=== PATIENT | female | born 1955 | race Caucasian/White ===

== ENCOUNTER 2017-11-04 10:15 | Outpatient (REF) | payer OTHER, SELFPAY ==
[2017-11-04 19:10] LABS: TSH 2.27 uIU/mL (0.358-3.74)
== END 2017-11-04 10:35 ==
LOC: NCHCN 10:15
PROVIDERS: PCP Physician Assistant; Visit Provider Nurse Practitioner Family
DX: E03.9 Hypothyroidism, unspecified (principal)
CPT/HCPCS: 84443

== ENCOUNTER 2018-11-14 11:02 | Outpatient (REF) | payer OTHER, SELFPAY ==
[2018-11-14 19:56] LABS: TSH (W/Ref FT4) 1.29 uIU/mL (0.36-3.74)
== END 2018-11-14 11:22 ==
LOC: NCHCN 11:02
PROVIDERS: PCP Physician Assistant; Visit Provider Nurse Practitioner Family
DX: R73.9 Hyperglycemia, unspecified (principal); E03.9 Hypothyroidism, unspecified
CPT/HCPCS: 84443

== ENCOUNTER 2019-12-11 14:54 | Outpatient (REF) | payer OTHER, SELFPAY ==
[2019-12-11 20:00] LABS: TSH (W/Ref FT4) 3.13 uIU/mL (0.36-3.74)
== END 2019-12-11 15:14 ==
LOC: NCHCN 14:54
PROVIDERS: PCP Physician Assistant; Visit Provider Nurse Practitioner Family
DX: E03.9 Hypothyroidism, unspecified (principal)
CPT/HCPCS: 84443

== ENCOUNTER 2021-01-15 09:18 | Outpatient (REF) | payer OTHER, SELFPAY ==
[2021-01-16 10:43] LABS: COVID-19 RT-PCR UVMMC Result Positive (Negative)
== END 2021-01-15 09:19 | disposition home or self-care (01) ==
LOC: NCHCN 09:18
PROVIDERS: PCP Physician Assistant; Visit Provider Physician Assistant
DX: Z20.822 Contact with and (suspected) exposure to COVID-19 (principal); R09.89 Other specified symptoms and signs involving the circulatory and respiratory systems
CPT/HCPCS: U0003

== ENCOUNTER 2021-05-08 20:21 | Outpatient (REF) | payer OTHER, SELFPAY ==
[2021-05-08 20:16] LABS: CREATININE 0.8 mg/dL (0.55-1.02); TSH 0.77 uIU/mL (0.36-3.74)
== END 2021-05-08 20:22 | disposition home or self-care (01) ==
LOC: NCHCN 20:21
PROVIDERS: PCP Physician Assistant; Visit Provider Nurse Practitioner Family
DX: I10 Essential (primary) hypertension (principal); E03.9 Hypothyroidism, unspecified
CPT/HCPCS: 82565; 84443

== ENCOUNTER 2022-08-18 12:36 | Outpatient (REF) | payer OTHER, SELFPAY ==
[2022-08-18 19:41] LABS: CREATININE 0.7 mg/dL (0.55-1.02); Estimated GFR 94.73 (mL/min/1.73m2); TSH 1.33 uIU/mL (0.36-3.74)
== END 2022-08-18 12:37 | disposition home or self-care (01) ==
LOC: NCHCN 12:36
PROVIDERS: PCP Physician Assistant; Visit Provider Nurse Practitioner Family
DX: E03.9 Hypothyroidism, unspecified (principal)
CPT/HCPCS: 82565; 84443

== ENCOUNTER 2023-08-23 15:11 | Outpatient (REF) | payer OTHER, SELFPAY ==
[2023-08-23 20:28] LABS: Calculated LDL 67 mg/dL (<100); Cholesterol 162 mg/dL (<200); HDL Cholesterol 83 mg/dL (40-60); TSH (W/Ref FT4) 2.71 uIU/mL (0.36-3.74); Triglyceride 61 mg/dL (<150)
== END 2023-08-23 15:12 | disposition home or self-care (01) ==
LOC: NCHCN 15:11
PROVIDERS: PCP Physician Assistant; Visit Provider Nurse Practitioner Family
DX: E03.9 Hypothyroidism, unspecified (principal); Z13.6 Encounter for screening for cardiovascular disorders
CPT/HCPCS: 80061; 84443

== ENCOUNTER 2024-08-28 18:02 | Outpatient (REF) | payer OTHER, SELFPAY ==
[2024-08-28 20:20] LABS: ALT 24 U/L (14-59); AST 17 U/L (15-37); Albumin 3.8 g/dL (3.4-5.0); Alkaline Phosphatase 82 U/L (46-116); Anion Gap 3.5 mmol/L (3-11); BUN 13 mg/dL (7-18); Bilirubin, Total 0.5 mg/dL (0.2-1.0); CO2 32.5 mmol/L (21.0-32.0); CREATININE 0.7 mg/dL (0.55-1.02); Calcium 9.2 mg/dL (8.5-10.1); Chloride 104 mmol/L (98-107); Estimated GFR 93.56 (mL/min/1.73m2); Glucose 101 mg/dL (74-106); Potassium 4.2 mmol/L (3.5-5.1); Sodium 140 mmol/L (136-145); Total Protein 6.7 g/dL (6.4-8.2)
== END 2024-08-28 18:03 | disposition home or self-care (01) ==
LOC: NCHCN 18:02
PROVIDERS: PCP Physician Assistant; Visit Provider Nurse Practitioner Family
DX: I10 Essential (primary) hypertension (principal); E03.9 Hypothyroidism, unspecified
CPT/HCPCS: 80053; 84443